=== PATIENT | male | born 1940 | race Caucasian/White ===

== ENCOUNTER 2018-06-21 14:15 | Emergency (ER) | payer OTHER, MEDICAID ==
[2018-06-21] MEDS: KETOROLAC 30 MG INJ IM (14:42)
== END 2018-06-21 16:08 | disposition home or self-care (01) ==
LOC: FTE 14:15
DX: M25.562 Pain in left knee (principal); G89.29 Other chronic pain; I10 Essential (primary) hypertension
CPT/HCPCS: 73562; 96372; 99284-25